=== PATIENT | female | born 1970 | race Caucasian/White ===

== ENCOUNTER 2022-12-31 07:52 | Emergency (ER) | payer OTHER, SELFPAY ==
--- NOTE | ~2022-12-31 | XR_ITS ---
EXAMINATION: XR chest 2V DATE: 12/31/2022 08:31 INDICATION: Shortness of breath TECHNIQUE: PA and lateral views of the chest are obtained. COMPARISON: None available FINDINGS: There are days there are airspace opacities of the right middle and lower lobes as well as airspace opacity projecting in the superior segment of the right lower lobe. There is a small amount fluid in the right major fissure. No pneumothorax is identified. The cardiomediastinal silhouette is normal. There is mild thoracic spondylosis. IMPRESSION: 1. Findings consistent with multifocal pneumonia of the right middle and lower lobes. Reviewed, dictated and finalized at location A.
[2022-12-31 07:52] VITALS: BP 119/72; PULSE 93; RESP 18; TEMP 37.4; O2SAT 98
--- NOTE | 2022-12-31 08:05 | ED.SOB ---
HPI - SOB/Dyspnea General Chief Complaint: Shortness of Breath/Dyspnea Stated Complaint: Shortness of breath Time Seen by Provider: 12/31/22 08:01 Source: patient and RN notes reviewed Mode of arrival: ambulatory Limitations: no limitations History of Present Illness MD elicited complaint: shortness of breath and cough Pertinent past history: pneumonia Onset (ago): day(s) (1) Context: recent illness Timing: constant Severity: moderate Exacerbating factors: exertion and coughing Relieving factors: rest Associated symptoms: chest congestion Treatment prior to arrival: none Related Data Home oxygen amount: none Allergies Allergy/AdvReac Type Severity Reaction Status Date / Time No Known Allergies Allergy Verified 12/31/22 08:03 Review of Systems Review of Systems: All systems reviewed & are unremarkable except as noted in HPI and below Constitutional: Constitutional: Denies chills and Denies fever(s) PMFSH Past Medical History Medical History (Updated 12/31/22 @ 09:24 by Zachary Rey MD) No active medical problems Surgical History Surgical History (Updated 12/31/22 @ 08:14 by Zachary Rey MD) History of section Social History Social History (Updated 12/31/22 @ 08:14 by Zachary Rey MD) Smoking packs per day: 0.5 Smoking cigarettes per day: 10.0 Smoking status: Current every day smoker Tobacco type: cigarettes Exam Const: General: healthy appearing, no acute distress and alert Nutritional Appearance: well nourished Orientation/consciousness: patient oriented x3 Limitations: no limitations HENMT: Head: normal to inspection Ears: external ears normal Face/Nose/Sinus: Normal external nose present Face and sinus: normal facial exam Mouth: Yes moist mucous membranes Eyes: Conjunctivae: conjunctivae normal Pupils: Equal, round and reactive pupils present EOM: EOMs intact bilaterally Neck: Neck: normal visual inspection Resp: Effort & Inspection: normal respiratory effort Auscultation: crackles on the right at the base Cardio: Rate: regular rate Rhythm: regular rhythm GI: GI Palp: Yes Soft to palpation and No Tenderness to palpation present (GI) Auscultation: normal bowel sounds Back/Spine/Pelvis: Cervical Spine: cervical ROM normal Thoracic/Lumbar Spine: thoraco-lumbar ROM normal Skin: General skin exam: normal color Rashes: no rashes Neuro: General: patient oriented x3, moves all extremities, no focal motor deficits and CN's II-XI intact bilaterally Speech: normal speech Gait exam (Neuro): Normal gait present Extrem: General: normal to inspection and no clubbing, cyanosis or edema Psych: Mental Status: mental status grossly normal Affect: normal affect Attitude: cooperative Course Vital Signs Vital signs: Vital Signs Temperature 37.4 C 12/31/22 07:52 Pulse Rate 93 12/31/22 07:52 Respiratory Rate 18 12/31/22 07:52 Blood Pressure 119/72 12/31/22 07:52 Pulse Oximetry 98 12/31/22 07:52 Oxygen Delivery Room Air 12/31/22 07:52 Temperature 37.4 C 12/31/22 07:52 Pulse Rate 93 12/31/22 07:52 Respiratory Rate 18 12/31/22 07:52 Blood Pressure 119/72 12/31/22 07:52 Pulse Oximetry 98 12/31/22 07:52 Oxygen Delivery Room Air 12/31/22 07:52 MDM - SOB/Dyspnea Differential Diagnosis Differential diagnosis: Likely acute exacerbation of chronic obstructive airways disease, congestive heart failure, community acquired pneumonia, asthma with exacerbation and pulmonary embolism Lab Data Attestation: I reviewed the patient's lab results. Discharge Plan Discharge Clinical Impression: Community acquired pneumonia Qualifiers: Laterality: right Lung location: lower lobe of lung Qualified Code(s): J18.9 - Pneumonia, unspecified organism Patient Disposition: Home, Self-Care Condition: Stable Instructions: Antibiotic Form, Community Acquired Pneumonia (ED) Additional Instructions: follow-up with your primary care
[2022-12-31 08:49] LABS: Basophils Absolute Auto 0.02 K/mm3 (0.00-0.10); Basophils Percent Auto 0.1 % (0.0-1.0); Hematocrit 40.3 % (35.0-49.0); Hemoglobin 13.2 g/dL (12.0-15.0); Immature Granulocyte Absolute 0.13 K/mm3 (0.00-0.00); Immature Granulocyte Percent A 0.8 % (0.0-0.0); Lymphocytes Percent Auto 3.1 % (18.0-42.0); Mean Corpuscular HGB Conc 32.8 g/dL (32.0-36.0); Mean Corpuscular Hemoglobin 29.9 pg (27.0-31.0); Mean Corpuscular Volume 91.4 fL (78.0-102.0); Mean Platelet Volume 9.6 fl (9.2-11.8); Monocytes Absolute Auto 0.69 K/mm3 (0.10-0.90); Monocytes Percent Auto 4.3 % (2.0-11.0); Neutrophils Absolute Auto 14.7 K/mm3 (1.7-7.2); Neutrophils Percent Auto 91.7 % (50.0-70.0); Platelet Count Result 253 K/mm3 (150-420); Red Blood Count 4.41 M/mm3 (4.20-5.40); Red Cell Distribution Width 12.9 % (11.6-14.4); White Blood Count 16.1 K/mm3 (4.8-10.8)
[2022-12-31 09:02] LABS: Influenza A QL RT-PCR Negative (Negative); Influenza B QL RT-PCR Negative (Negative); SARS-CoV-2 RNA PCR Negative (Negative)
[2022-12-31 09:03] LABS: Alanine Aminotransferase 22 U/L (14-59); Albumin Level 3.5 g/dL (3.4-5.0); Alkaline Phosphatase 93 U/L (46-116); Anion Gap 11 mmol/L (8-16); Aspartate Amino Transferase 19 U/L (15-37); Bilirubin,Total 0.7 mg/dL (0.00-1.00); Blood Urea Nitrogen 10 mg/dL (7-18); Carbon Dioxide 28 mmol/L (21-32); Chloride 103 mmol/L (98-108); Estimated CRCL calculation 47 ml/min; Estimated Glomerular Filt Rate > 60; Glucose 173 mg/dL (70-99); Osmolality Calculated 297 mOsm/kg (285-295); Potassium 3.7 mmol/L (3.5-5.1); Sodium 142 mmol/L (136-145); Total Protein 7.7 g/dL (6.4-8.2)
[2022-12-31 09:06] LABS: Lactic Acid Reflex 2.3 mmol/L (0.4-2.0)
[2022-12-31 09:12] LABS: Magnesium 1.7 mg/dL (1.8-2.4); NT Pro B Type Natriuretic Pept 358 pg/mL (0-125)
[2022-12-31 09:27] VITALS: BP 113/64; PULSE 94; RESP 18; TEMP 37.2; O2SAT 99
[2022-12-31 10:19] LABS: Reflex Lactic Acid Yes or No No Lactic Reflex
--- NOTE | 2023-01-14 15:11 | PC.NURSE ---
final blood culture reports x2 reviewed. no growth after 5 days . no change in pt care plan.
== END 2022-12-31 09:31 | disposition home or self-care (01) ==
PROVIDERS: Emergency Provider Emergency Medicine; PCP Physician Assistant
DX: J18.9 Pneumonia, unspecified organism (principal); F17.210 Nicotine dependence, cigarettes, uncomplicated; Z20.822 Contact with and (suspected) exposure to COVID-19
CPT/HCPCS: 36415; 71046; 80053; 83605; 83735; 83880; 85025; 87040; 87502; 99283; U0003; U0005

== ENCOUNTER 2023-06-27 16:28 | Emergency (ER) | payer OTHER, SELFPAY ==
--- NOTE | ~2023-06-27 | XR_ITS ---
EXAMINATION: XR chest 2V DATE: 06/27/2023 16:52 INDICATION: 2 days of shortness of breath TECHNIQUE: PA and lateral views of the chest were obtained. COMPARISON: Chest radiograph dated 12/31/2022 FINDINGS: Prior opacities in the right lung have resolved. New subtle opacities at the lingula. No pleural effu babak or pneumothorax. The cardiomediastinal silhouette is normal. Bilateral old healed rib fractures. IMPRESSION: 1. New subtle opacities at the lingula which could represent pneumonia or atelectasis. Reviewed, dictated and finalized at location A. IMPRESSION: 1. New subtle opacities at the lingula which could represent pneumonia or atele ctasis.
[2023-06-27 16:30] VITALS: BP 112/74; PULSE 80; RESP 18; TEMP 37.4; O2SAT 98
--- NOTE | 2023-06-27 16:30 | ED.SOB ---
HPI - SOB/Dyspnea General Chief Complaint: Shortness of Breath/Dyspnea Stated Complaint: SOB Time Seen by Provider: 06/27/23 16:30 Source: patient and RN notes reviewed Mode of arrival: ambulatory Limitations: no limitations History of Present Illness MD elicited complaint: shortness of breath and cough ( nonproductive) Pertinent past history: pneumonia Onset (ago): day(s) (1) Timing: intermittent Severity: moderate Exacerbating factors: coughing Relieving factors: nothing Known history of: recurrent pneumonia (in December) Associated symptoms: other ( rib pain with coughing) Treatment prior to arrival: none Related Data Home oxygen amount: none Allergies Allergy/AdvReac Type Severity Reaction Status Date / Time No Known Allergies Allergy Verified 06/27/23 16:32 Review of Systems Review of Systems: All systems reviewed & are unremarkable except as noted in HPI and below Constitutional: Constitutional: Reports chills and Denies fever(s) ENT: Denies nasal congestion and Denies sore throat Gastrointestinal: Gastrointestinal: Denies nausea and Denies vomiting Neurologic: Denies headache(s) [facility] Past Medical History Medical History No active medical problems Surgical History Surgical History History of section Social History Social History Smoking packs per day: 0.5 Smoking cigarettes per day: 10.0 Smoking status: Current every day smoker Tobacco type: cigarettes Exam Const: General: healthy appearing, no acute distress and alert Nutritional Appearance: well nourished Orientation/consciousness: patient oriented x3 Limitations: no limitations HENMT: Head: normal to inspection Ears: external ears normal Face/Nose/Sinus: Normal external nose present Face and sinus: normal facial exam Mouth: Yes moist mucous membranes Eyes: Conjunctivae: conjunctivae normal Pupils: Equal, round and reactive pupils present EOM: EOMs intact bilaterally Neck: Neck: normal visual inspection Resp: Effort & Inspection: normal respiratory effort Auscultation: clear to auscultation bilaterally Cardio: Rate: regular rate Rhythm: regular rhythm GI: GI Palp: Yes Soft to palpation and No Tenderness to palpation present (GI) Auscultation: normal bowel sounds Back/Spine/Pelvis: Cervical Spine: cervical ROM normal Thoracic/Lumbar Spine: thoraco-lumbar ROM normal Skin: General skin exam: normal color Rashes: no rashes Neuro: General: patient oriented x3, moves all extremities, no focal motor deficits and CN's II-XI intact bilaterally Speech: normal speech Gait exam (Neuro): Normal gait present Extrem: General: normal to inspection and no clubbing, cyanosis or edema Psych: Mental Status: mental status grossly normal Affect: normal affect Attitude: cooperative MDM - SOB/Dyspnea Differential Diagnosis Differential diagnosis: Likely acute exacerbation of chronic obstructive airways disease, community acquired pneumonia and other ( electrolyte abnormality, COVID, influenza, anemia) Discharge Plan Discharge Clinical Impression: Community acquired pneumonia Qualifiers: Laterality: left Lung location: lower lobe of lung Qualified Code(s): J18.9 - Pneumonia, unspecified organism Patient Disposition: Home, Self-Care Condition: Stable Instructions: Antibiotic Form, Community Acquired Pneumonia (ED) Additional Instructions: Quit smoking. Follow-up with your primary care physician if not better in the next 3-5 days. Prescriptions: New amoxicillin-pot clavulanate 875-125 mg tablet 1 tablet PO Q12H 10 Days Qty: 20 0RF prednisone 20 mg tablet See Rx Instructions .ROUTE .COMPLEX Qty: 21 0RF Rx Instructions: 20 mg orally p.o. t.i.d. x4 days, then 1 p.o. b.i.d. x3 days, then 1 p.o. daily x3 days. Follow-up/Referrals: Александр
[2023-06-27 16:41] VITALS: O2SAT 98
[2023-06-27 17:04] LABS: Basophils Absolute Auto 0.01 K/mm3 (0.00-0.10); Basophils Percent Auto 0.2 % (0.0-1.0); Eosinophils Absolute Auto 0.19 K/mm3 (0.02-0.50); Hematocrit 38.1 % (35.0-49.0); Hemoglobin 12.4 g/dL (12.0-15.0); Immature Granulocyte Absolute 0.01 K/mm3 (0.00-0.00); Immature Granulocyte Percent A 0.2 % (0.0-0.0); Lymphocytes Absolute Auto 1.12 K/mm3 (1.10-4.50); Lymphocytes Percent Auto 17.8 % (18.0-42.0); Mean Corpuscular HGB Conc 32.5 g/dL (32.0-36.0); Mean Corpuscular Hemoglobin 29.4 pg (27.0-31.0); Mean Corpuscular Volume 90.3 fL (78.0-102.0); Mean Platelet Volume 9.4 fl (9.2-11.8); Monocytes Absolute Auto 0.61 K/mm3 (0.10-0.90); Monocytes Percent Auto 9.7 % (2.0-11.0); Neutrophils Absolute Auto 4.4 K/mm3 (1.7-7.2); Neutrophils Percent Auto 69.1 % (50.0-70.0); Platelet Count Result 222 K/mm3 (150-420); Red Blood Count 4.22 M/mm3 (4.20-5.40); Red Cell Distribution Width 12.5 % (11.6-14.4); White Blood Count 6.3 K/mm3 (4.8-10.8)
[2023-06-27] MEDS: methylPREDNISolone SOD SUCC 125 MG VIAL IM (17:12)
[2023-06-27 17:14] LABS: Influenza A QL RT-PCR Negative (Negative); Influenza B QL RT-PCR Negative (Negative); SARS-CoV-2 RNA PCR Negative (Negative)
[2023-06-27 17:23] LABS: Lactic Acid Reflex 2.3 mmol/L (0.4-2.0)
[2023-06-27 17:31] LABS: Alanine Aminotransferase 15 U/L (14-59); Alkaline Phosphatase 95 U/L (46-116); Anion Gap 13 mmol/L (8-16); Aspartate Amino Transferase 15 U/L (15-37); Bilirubin,Total 0.3 mg/dL (0.00-1.00); Blood Urea Nitrogen 7 mg/dL (7-18); Calcium 9.2 mg/dL (8.5-10.1); Carbon Dioxide 27 mmol/L (21-32); Chloride 103 mmol/L (98-108); Estimated CRCL calculation 60 ml/min; Estimated Glomerular Filt Rate > 60; Glucose 124 mg/dL (70-99); Osmolality Calculated 295 mOsm/kg (285-295); Potassium 3.1 mmol/L (3.5-5.1); Sodium 143 mmol/L (136-145); Total Protein 7.2 g/dL (6.4-8.2)
[2023-06-27 17:45] VITALS: BP 112/74; PULSE 82; RESP 16; TEMP 37.2; O2SAT 98
[2023-06-27 20:02] LABS: Reflex Lactic Acid Yes or No Add Lactic
--- NOTE | 2023-07-03 12:50 | PC.NURSE ---
FINAL BLOOD CULTURE RESULTS: NO GROWTH AFTER 5 DAYS, NO FURTHER ACTION ON TREATMENT NEEDED.
== END 2023-06-27 17:45 | disposition home or self-care (01) ==
LOC: CHSED 17:48
PROVIDERS: Emergency Provider Emergency Medicine; PCP Physician Assistant
DX: J18.9 Pneumonia, unspecified organism (principal); F17.210 Nicotine dependence, cigarettes, uncomplicated; Z20.822 Contact with and (suspected) exposure to COVID-19
CPT/HCPCS: 36415; 71046; 80053; 83605; 85025; 86140; 87040; 87636; 96372; 99283; J2930